=== PATIENT | female | born 1985 | race African-American/Black ===

== ENCOUNTER 2020-08-22 22:45 | Day surgery (SDC) | payer MEDICAID ==
[~2020-08-22] VITALS: Ht 172.7 cm; Wt 95.3 kg
[~2020-08-22 22:45] MED LIST: CYCL5TAB89; HYDR-1421; LORA-655
[2020-08-22] MEDS ORDERED: ONDANSETRON HCL 4 MG/2 ML VIAL ONE (23:17)
[2020-08-22] MEDS ORDERED: HYDROmorphone HCL 2 MG/ML VL ONE (23:17)
[2020-08-22 23:29] LABS: Basophils # (auto) 0.1 10 ^3/uL (0-0.2); Basophils % (auto) 0.8 % (0.0-2.0); Eosinophils # (auto) 0.1 10 ^3/uL (0-0.8); Eosinophils % (auto) 0.9 % (0.0-7.0); Hematocrit 38.1 % (36.0-46.0); Hemoglobin 13.1 g/dL (12.2-16.2); Lymphocytes # (auto) 4.1 10 ^3/uL (0.4-5.4); Lymphocytes % (auto) 42.1 % (10.0-50.0); Mean Corpuscular Hemoglobin 30.6 pg (28.0-32.0); Mean Corpuscular Hgb Conc. 34.4 g/dL (32.0-36.0); Monocytes # (auto) 0.7 10 ^3/uL (0-1.3); Monocytes % (auto) 6.8 % (0.0-12.0); Neutrophils # (auto) 4.8 10 ^3/uL (1.6-8.6); Neutrophils % (auto) 49.4 % (37.0-80.0); Nucleated Red Blood Cells % 0.1 %; Platelet Count (auto) 320 10^3/uL (140-450); Red Blood Cells 4.29 10^6/uL (4.0-5.20); Red Cell Distribution Width 13.4 % (11.8-14.3); White Blood Cell 9.6 10^3/uL (4.4-10.8)
[2020-08-22] MEDS ORDERED: HYDROmorphone HCL 2 MG/ML VL IV ONE ×2 (23:30→23:45)
[2020-08-22] MEDS ORDERED: SODIUM CHLORIDE 0.9% 1,000 ML IV ONE (23:30)
[2020-08-22] MEDS ORDERED: ONDANSETRON HCL 4 MG/2 ML VIAL IV ONE (23:30)
[2020-08-22 23:40] LABS: Urine Bacteria FEW /hpf (None Seen); Urine Blood 3+ /uL (Negative); Urine Specific Gravity 1.021 (1.001-1.035); Urine WBC 415 /hpf (0 - 5)
[2020-08-22 23:43] LABS: INR 0.99 (0.9-1.15)
[2020-08-22 23:47] LABS: Albumin 3.5 g/dL (3.4-5.0); Calcium 8.7 mg/dL (8.5-10.1); Potassium 3.9 mmol/L (3.5-5.1)
[2020-08-22 23:49] LABS: BUN/Creatinine Ratio 11.4
[2020-08-22 23:52] LABS: Bilirubin, Total 0.3 mg/dL (0.2-1.0); Total Protein 7.6 g/dL (6.4-8.2)
[2020-08-23] MEDS ORDERED: SODIUM CHLORIDE 0.9% 1,000 ML IV ONE (02:45)
[2020-08-23] MEDS ORDERED: fentaNYL CITRATE 100 MCG/2 ML VL IV ONE (02:45)
[2020-08-23] MEDS ORDERED: OXYTOCIN 20 UNT in SODIUM CHLORIDE 0.9% 1,000 ML IV ONE (02:45)
[2020-08-23] MEDS ORDERED: OXYTOCIN 20 UNT in LACTATED RINGER'S 1,000 ML IV ONE (03:00)
[2020-08-23] MEDS ORDERED: METHYLERGONOVINE MALEATE 0.2 MG/ML AMP IM ONE (03:00)
[2020-08-23] MEDS ORDERED: LACT. RINGERS/OXYTOCIN 20UNITS 1,000 ML IV ONE (03:09)
[2020-08-23] MEDS ORDERED: MIDAZOLAM HCL 1MG/1ML-2 ML VIAL ONE (03:22)
[2020-08-23] MEDS ORDERED: fentaNYL CITRATE 100 MCG/2 ML VL ONE (03:22)
[2020-08-23] MEDS ORDERED: ONDANSETRON HCL 4 MG/2 ML VIAL ONE (03:24)
[2020-08-23] MEDS ORDERED: LIDOCAINE 2% (LOCAL ANESTH.) PF 5ml SDV ONE (03:24)
[2020-08-23] MEDS ORDERED: PROPOFOL 10 MG/ML 20 ML IV ONE (03:24)
[2020-08-23] MEDS ORDERED: ceFAZolin 1GM/50ML 50 ML IV ONE (03:29)
[2020-08-23] MEDS ORDERED: LACTATED RINGER'S 1,000 ML IV SCH (04:15)
[2020-08-23] MEDS ORDERED: ONDANSETRON HCL 4 MG/2 ML VIAL IV PRN (05:00)
[2020-08-23 06:30] VITALS: BP 105/64
== END 2020-08-23 03:19 | disposition home or self-care (01) ==
LOC: ER 22:48 → SUR 22:49 → ER 08-23 03:19 → SUR 08-23 03:19
PROVIDERS: ATTEND Specialist
DX: O03.4 Incomplete spontaneous abortion without complication (principal); Z98.890 Other specified postprocedural states; Z79.899 Other long term (current) drug therapy; Z3A.01 Less than 8 weeks gestation of pregnancy; Z68.31 Body mass index [BMI] 31.0-31.9, adult
CPT/HCPCS: 36415; 59812; 76801; 76817; 80053; 81001; 82150; 83690; 84702; 85025; 85610; 86850; 86900; 86901; 87426; 96361; 96374; 96375; 99285; J0690; J1170; J2001; J2250; J2405; J2590; J2704; J3010; J7030